=== PATIENT | female | born 1940 | race Caucasian/White ===

== ENCOUNTER 2016-12-06 08:55 | Outpatient (CLI) | payer MEDICARE, MEDICAID | END 2016-12-06 23:59 | disposition home or self-care (01) | LOC: D.MAMMO 08:55 | DX: Z12.31 Encounter for screening mammogram for malignant neoplasm of breast (principal) ==

== ENCOUNTER → 2017-01-02 11:16 | Outpatient (CLI) | payer MEDICARE, MEDICAID ==
[2017-01-03 16:38] LABS: APPEARANCE CLEAR (CLEAR); BILIRUBIN NEGATIVE (NEGATIVE); COLOR YELLOW (YELLOW); GLUCOSE NEGATIVE (NEGATIVE); KETONE NEGATIVE (NEGATIVE); LEUKOCYTE ESTERASE NEGATIVE (NEGATIVE); NITRITE NEGATIVE (NEGATIVE); PROTEIN NEGATIVE (NEGATIVE); SPECIFIC GRAVITY 1.015 (1.005-1.020); UROBILINOGEN NORMAL (NORMAL)
== END | disposition home or self-care (01) ==
LOC: D.CT 11:16
PROVIDERS: Internal Medicine Gastroenterology
DX: R10.30 Lower abdominal pain, unspecified (principal)

== ENCOUNTER → 2017-01-03 19:40 | Outpatient (CLI) | payer MEDICARE, MEDICAID ==
[2017-01-04 08:37] LABS: APPEARANCE CLEAR (CLEAR); BACTERIA FEW /hpf (NONE SEEN); BILIRUBIN NEGATIVE (NEGATIVE); COLOR YELLOW (YELLOW); EPITHELIAL CELLS RARE /hpf (0-5); GLUCOSE NEGATIVE (NEGATIVE); KETONE NEGATIVE (NEGATIVE); LEUKOCYTE ESTERASE 1+ (NEGATIVE); MUCUS <1+ /lpf (NONE SEEN); NITRITE NEGATIVE (NEGATIVE); PROTEIN NEGATIVE (NEGATIVE); UROBILINOGEN NORMAL (NORMAL); WHITE CELLS - URINE 0-5 /hpf (0-5)
== END | disposition home or self-care (01) ==
LOC: D.LABREF 19:40
PROVIDERS: Urology
DX: N39.0 Urinary tract infection, site not specified (principal)

== ENCOUNTER → 2017-01-10 19:26 | Outpatient (CLI) | payer MEDICARE, MEDICAID ==
[2017-01-10 20:46] LABS: APPEARANCE CLEAR (CLEAR); BILIRUBIN NEGATIVE (NEGATIVE); COLOR YELLOW (YELLOW); GLUCOSE NEGATIVE (NEGATIVE); KETONE NEGATIVE (NEGATIVE); LEUKOCYTE ESTERASE TRACE (NEGATIVE); NITRITE NEGATIVE (NEGATIVE); PROTEIN NEGATIVE (NEGATIVE); SPECIFIC GRAVITY 1.015 (1.005-1.020); UROBILINOGEN NORMAL (NORMAL)
[2017-01-10 20:47] LABS: WHITE CELLS - URINE 0-5 /hpf (0-5)
== END | disposition home or self-care (01) ==
LOC: D.LABREF 19:26
PROVIDERS: Urology
DX: N39.0 Urinary tract infection, site not specified (principal)

== ENCOUNTER → 2017-01-19 21:07 | Outpatient (CLI) | payer MEDICARE, MEDICAID ==
[2017-01-19 21:46] LABS: APPEARANCE CLEAR (CLEAR); BILIRUBIN NEGATIVE (NEGATIVE); COLOR YELLOW (YELLOW); GLUCOSE NEGATIVE (NEGATIVE); KETONE NEGATIVE (NEGATIVE); LEUKOCYTE ESTERASE NEGATIVE (NEGATIVE); NITRITE NEGATIVE (NEGATIVE); PROTEIN NEGATIVE (NEGATIVE); SPECIFIC GRAVITY 1.015 (1.005-1.020); UROBILINOGEN NORMAL (NORMAL)
== END | disposition home or self-care (01) ==
LOC: D.LABREF 21:07
PROVIDERS: Urology
DX: N39.0 Urinary tract infection, site not specified (principal)

== ENCOUNTER 2017-01-31 08:00 | Inpatient (IN) | payer MEDICARE, MEDICAID ==
[2017-01-30 11:33] LABS: APTT 27.9 SECONDS (22.8-39.4); INR 0.97 (0.85-1.17); PROTIME 12.8 SECONDS (11.6-15.0)
[2017-01-30 11:35] LABS: HEMATOCRIT 41.9 % (36.0-48.0); HEMOGLOBIN 13.8 g/dL (12-16); MCH 30.3 pg (26.0-34.0); MCHC 32.9 g/dL (31.0-37.0); MCV 92.1 fL (80.0-100.0); MEAN PLATELET VOLUME 9.5 fL (7.4-10.4); RBC 4.55 10x6/uL (4.00-5.40); RDW 12.8 % (11.5-14.5); WBC 6.7 10x3/uL (4.8-10.8)
[2017-01-30 11:46] LABS: ANION GAP 12.7 mmol/L (8-16); CALCIUM 8.8 mg/dL (8.5-10.1); CARBON DIOXIDE 27.4 mmol/L (21.0-32.0); CREATININE - SERUM 1.1 mg/dL (0.6-1.3); POTASSIUM - SERUM 4.1 mmol/L (3.5-5.1)
[~2017-01-31] VITALS: Ht 157.5 cm; Wt 64.0 kg
[2017-01-31] VITALS (16 sets, daily range): BP systolic 139–184; BP diastolic 60–87; BMI 25.8
[~2017-01-31 08:00] MED LIST: ALENDRONATE SOD70 MG PO; ARICEPT10 MG PO; CELEXA20 MG PO; GLIPIZIDE10 MG PO; LISINOPRIL10 MG PO
--- NOTE | 2017-01-31 15:00 | NUR ---
PT RECIEVED, EYES CLOSED, AROUSES WHEN SPOKEN TO, RESPIRATIONS EVEN, SHALLOW, O2 4L NC, PIV X2 TO RIGHT FOREARM, NS INFUSING 125ML/HR, A LINE TO LEFT WRIST, ZEROED AND FLUSHED, DRESSINGS X4 TO ABD CDI, DENIES PAIN, SCDS IN PLACE, CRITICORE BARRERA IN PLACE, VSS, FAMILY IN ROOM AND DENIES QUESTIONS/CONCERNS, WILL CONTNINUE TO MONITOR
--- NOTE | 2017-01-31 17:00 | NUR ---
PT ALERT, ABLE TO VOICE NEEDS, PAIN MANAGED WITH PRN MORPHINE PER REQUEST FOR ABD PAIN, ABD DRESSINGS CDI, CALL LIGHT WITHIN REACH, ABLE TO DRINK SMALL SIPS OF WATER, DENIES ALL NEEDS, VSS, WILL CONTINUE TO MONITOR
--- NOTE | 2017-01-31 19:11 | NUR ---
REC'D TO CARE, CREATIVE INTERN PER FLOWSHEET. PT AWAKENS TO NAME, ORIENTED. R ABD DSGS C/D/I, TENDER - WILL ADMIN PRN MEDS PER MD ORDERS NEEDED. CRITICORE BRUCE PATENT. L RADIAL A-LINE, FLUSHED AND ZEROED WITH GOOD WAVE FORM NOTED. ALARMS ON AND C/L IN USE.
--- NOTE | 2017-01-31 19:41 | NUR ---
PRN NORCO GIVEN, REPOSITIONED FOR COMFORT, USING PILLOW TO SPLINT ABD.
--- NOTE | 2017-01-31 20:07 | NUR ---
DR. NARANJO NOTIFIED OF SBP 180S, STATUS REPORT GIVEN, NO NEW ORDERS.
--- NOTE | 2017-01-31 21:15 | NUR ---
NO VISITORS. PT RESTING QUIETLY, NO SIGN OF DISTRESS.
--- NOTE | 2017-01-31 21:56 | NUR ---
PT C/O "HURTING AGAIN", REPOSITIONED WITH PILLOWS AND PRN MORPHINE GIVEN, ALARMS ON . C/L IN REACH.
--- NOTE | 2017-01-31 22:54 | NUR ---
REASSESSMENT PER FLOWSHEET, NO ACUTE CHANGES, PT REPORTS ADEQUATE PAIN RELIEF, NO SIGN OF DISTRESS. C/L IN REACH.
[2017-02-01] VITALS (21 sets, daily range): BP systolic 110–167; BP diastolic 49–90; Ht 157.5 cm; Wt 64.0 kg
--- NOTE | 2017-02-01 01:14 | NUR ---
PT TRANSFERRED TO RM 2301 VIA BED, VSS. REPOSITIONED FOR COMFORT, TAKING SIPS OF WATER WITHOUT NAUSEA.
--- NOTE | 2017-02-01 03:30 | NUR ---
REASSESSMENT PER FLOWSHEET, PT AWAKENS EASILY, VSS. DENIES NEED FOR PAIN MED, TAKING SIPS OF WATER. NO SIGN OF DISTRESS. ABD DSGS C/D/I. ALARMS ON AND C/L IN REACH.
--- NOTE | 2017-02-01 06:05 | NUR ---
FAMILY AT BS, UPDATE GIVEN. LEMON SWABS PROVIDED FOR ORAL CARE.
--- NOTE | 2017-02-01 07:00 | NUR ---
PT LYING IN BED WITH 0 S/SX OF DISTRESS/DISCOMFORT NOTED. CONFUSION NOTED. WAS TOLD THAT PT HAS ALZHEIMER'S. PT ALERT AND ORIETED TO PERSON ONLY. DENIES PAIN AT THIS TIME. HAS FC WITH CLEAR YELLOW URINE NOTED.37ML OUT AT 0700. 4 DRESSING TO ABD C/D/I. 2 PIV IN RIGHT FOREARM. 18 GAUGE PATENT WITH NS AT 125ML/H AND A 20 GAUGE SL. BOTH IV'S PATENT WITH C/D/I DRESSING. LEFT RADIAL ART LINE. GOOD WAVE'S 153/63 AFTER BEING ZEROED OUT. CALL LIGHT IN REACH. BED IN LOWEST POSITION. WILL CONT POC.
[2017-02-01 07:06] LABS: BASOPHILS 0.1 % (0-2); EOSINOPHILS 0.1 % (0-7); HEMATOCRIT 37.3 % (36.0-48.0); HEMOGLOBIN 12.2 g/dL (12-16); IMMATURE GRANULOCYTES 0.2 % (0-5); LYMPHOCYTES 7.6 % (15-50); MCH 30.2 pg (26.0-34.0); MCHC 32.7 g/dL (31.0-37.0); MCV 92.3 fL (80.0-100.0); MEAN PLATELET VOLUME 9.3 fL (7.4-10.4); MONOCYTES 9.3 % (2-11); NEUTROPHILS 82.7 % (40-80); PLATELET COUNT 150 10x3/uL (130-400); RBC 4.04 10x6/uL (4.00-5.40); RDW 12.9 % (11.5-14.5)
[2017-02-01 07:08] LABS: WBC 12.6 10x3/uL (4.8-10.8)
[2017-02-01 07:37] LABS: ANION GAP 13.2 mmol/L (8-16); CALCIUM 7.1 mg/dL (8.5-10.1); CARBON DIOXIDE 22.1 mmol/L (21.0-32.0); CREATININE - SERUM 1.2 mg/dL (0.6-1.3); POTASSIUM - SERUM 4.3 mmol/L (3.5-5.1)
--- NOTE | 2017-02-01 08:00 | NUR ---
OUT PUT 20ML CLEAR YELLOW URINE
--- NOTE | 2017-02-01 09:00 | NUR ---
110ML OUTPUT CLEAR YELLOW URINE
--- NOTE | 2017-02-01 09:26 | NUR ---
FAMILY AT BED WITH WITH CASE MANAGMENT.
--- NOTE | 2017-02-01 10:00 | NUR ---
73ML OUTPUT OF CLEAR YELLOW URINE
--- NOTE | 2017-02-01 11:00 | NUR ---
73 ML OUTPUT OF CLEAR YELLOW URINE
--- NOTE | 2017-02-01 12:00 | NUR ---
87 ML OF CLEAR YELLOW URINE.
--- NOTE | 2017-02-01 12:00 | NUR ---
FAMILY AND FRIENDS AT BED SIDE. ABD DRESSINGS C/D/I. NO NEEDS AT THIS TIME. BREATHING NORMAL AND UNLABORED. CALL LIGHT IN REACH.
--- NOTE | 2017-02-01 12:51 | NUR ---
C/O DULL ABD PAIN 12/24. ABD DRESSING C/D/I. PRN NORCO GIVEN.
--- NOTE | 2017-02-01 13:00 | NUR ---
183 ML OF CLEAR YELLOW URINE.
--- NOTE | 2017-02-01 13:08 | NUR ---
AT BED SIDE. OK TO TRANSFER OUT OF ICU. DRESSING C/D/I. URINE OUTPUT REMAINS STABLE. AWAITING HOSPITAL BED. CALL LIGHT IN REACH. WILL CONT POC.
--- NOTE | 2017-02-01 13:21 | NUR ---
REASSESSED ABD PAIN. 08/26. STATES SHE FEELS "BETTER". NO S/SX OF ASE NOTED. WILL CONT POC.
--- NOTE | 2017-02-01 14:00 | NUR ---
217 ML OF CLEAR YELLOW URINE
--- NOTE | 2017-02-01 14:50 | NUR ---
PT GETTING CONFUSED. WONDERING WHY SHE IS IN ICU. REORIENTED PT AND EXPLAINED WHY SHE WAS IN [facility] AND WHAT HER CONDITION WAS. REORIENTED SUCCESSFUL. WATER AND JELLO GIVEN TO PT. TOLERATING WELL. CALL LIGHT IN REACH. WILL CONT POC.
--- NOTE | 2017-02-01 15:45 | NUR ---
REMAINS IN BED. NO NEEDS VOICED AT THIS TIME. ABD DRESSING X4 C/D/I. STILL WAITING ON OPEN BED FOR TRANSFER. CALL LIGHT IN REACH. WILL CONT POC
--- NOTE | 2017-02-01 16:23 | NUR ---
237 ML OF CLEAR YELLOW URINE NOTED.
--- NOTE | 2017-02-01 16:47 | NUR ---
HAD SCANT AMOUNT OF BLOOD NOTED TO A LINE. DRESSING WAS STARTING TO COME UNDONE. WRIST BRACE REMAINED IN PLACE. PAGED. OK TO RUBENS DOMINGUEZ. A LINE REMOVED WITH TIP OF CATHETER INTACT. PRESSURE APPLIED TO WRIST. NO BLEEDING NOTED. PRESSURE DRESSING APPLIED.
--- NOTE | 2017-02-01 17:00 | NUR ---
RENAL LIQUID DIET GIVEN. TOLERATING WELL WITH NO DYSPHAGIA.
--- NOTE | 2017-02-01 17:48 | NUR ---
DR MATAMOROS AT BED SIDE
--- NOTE | 2017-02-01 18:08 | NUR ---
DR MATAMOROS OK TO TRANSFER TO [facility]. WAITING ON BED.
--- NOTE | 2017-02-01 18:45 | NUR ---
PT HAS BEEN TAKIN OFF BP CUFF FOR MAJORITY OF THE SHIFT. NOTICED THAT SHE WAS MESSING WITH HER IV. IV HALF WAY OUT OF ARM AND ARM SWOLLEN. NS 125 WAS RUNNING BUT IT WAS TURNED OFF AND BOTH IV'S WHERE DC'D OUT OF HER RIGHT FA. X2 ATTEMPTS TO LEFT FOREARM AND LEFT AC. UNSUCCESSFUL. ONCOMING NURSE AWARE.
--- NOTE | 2017-02-01 18:54 | NUR ---
PT LYING IN BED WITH NO NEEDS AT THIS TIME. 0 S/SX OF DISTRESS/DISCOMFORT NOTED. BREATHING NORMAL AND UNLABORED. BED IN LOWEST POSITION. CALL LIGHT IN REACH. WILL CONT POC.
--- NOTE | 2017-02-01 19:00 | NUR ---
REC'D TO CARE, INDUCTION BRAZER PER FLOWSHEET. PT WITH NO IV ACCESS - NEW 20GA SITED TO R UPPER ARM X 1 STICK, RESUMED NS PER MD ORDER. PT IS PLEASANTLY CONFUSED, WILL REORIENT FREQUENTLY. VSS. NO SIGN OF DISTRESS. ABD SOFT, DSGS C/D/I. CRITICORE BARRERA PATENT AND DRANINING CLEAR, YELLOW URINE. PT WITH TRANSFER ORDERS AWAITING ROOM ON FLOOR. ALARMS ON AND C/L IN REACH.
--- NOTE | 2017-02-01 21:06 | NUR ---
DR. NARANJO NOTIFIED THAT PT BECAME AGITATED AND COMBATIVE AND HITTING STAFF.. THINKS SHE IS AT HOME AND STAFF IS STEALING FROM HER. NEW ORDER REC'D. ADMIN HALDOL PER PRN ORDER - WILL CONT CLOSE MONITORING.
--- NOTE | 2017-02-01 21:10 | NUR ---
ATTEMPT TO NOTIFY DAUGHTER - VOICE MAIL LEFT.
--- NOTE | 2017-02-01 21:29 | NUR ---
PT CALM AT THIS TIME, STILL CONFUSED AND VERBALLY ANGRY, WILL CONT TO REORIENT AND PROVIDE CLOSE OBSERVATION.
--- NOTE | 2017-02-01 22:15 | NUR ---
PT CALM, PLEASANTLY CONFUSED AND PARANOID. VSS. NO SIGN OF DISTRESS. REORIENTED BY NURSE. ALARMS ON.
--- NOTE | 2017-02-02 00:07 | NUR ---
RESTING WITH EYES CLOSED, NO SIGN OF DISTRESS. C/L IN REACH. ALARMS ON.
--- NOTE | 2017-02-02 01:47 | NUR ---
PT PULLING OFF NIBP CUFF AND ELECTRODES. ADMIN PRN HALDOL PER MD ORDER. REPOSITIONED UP IN BED, GIVEN DRINK OF WATER. VSS.
--- NOTE | 2017-02-02 02:15 | NUR ---
RESTING WITH EYES CLOSED, VSS. NO SIGN OF DISTRESS.
--- NOTE | 2017-02-02 03:30 | NUR ---
REASSESSMENT PER FLOWSHEET, NO ACUTE CHANGES. TEMP COMING UP, WEANING DOPAMINE GTT OFF.
--- NOTE | 2017-02-02 06:07 | NUR ---
PT RESTING QUIETLY, REFUSES TO KEEP EKG LEADS ON, LEFT ON SINCE SHE HAS TRANSFER ORDERS. DAUGHTER UPDATED OVER PHONE.
--- NOTE | 2017-02-02 07:00 | NUR ---
PT LYING IN BED AWAKE. PT ALERT TO PERSON ONLY. ORIENTED TO PLACE TIME AND SITUATION. PT HAD GOWN REMOVED FROM BODY, TELEMETRY REMOVED AND STACKLOCK REMOVED ON FC. TELEMETRY, STATLOCK AND GOWN PUT BACK ON PT THE CORRECT WAY. FC HAS YELLOW CLEAR URINE NOTED. PIV TO LEFT UPPER ARM PATENT WITH NS AT 125ML/H INFUSING. PT COMPLAIN OF ABD PAIN. DRESSING X4 C/D/I WITH NO DRAINAGE NOTED. 2MG MORPHINE GIVEN VIA IV. EFFECTIVE WITH NO S/SX OF ASE NOTED. LIQUID DIET PROVIDED. PT SITTING AT 90 DEGREES WITH NO S/SX OF DYSPAGIA NOTED. CALL LIGHT IN REACH. BED IN LOWEST POSITION WILL CONT POC.
[2017-02-02 08:00] VITALS: BP 166/73
--- NOTE | 2017-02-02 09:00 | NUR ---
DAUGHTER AT BED SIDE. QUESTION ANSWERED.
--- NOTE | 2017-02-02 10:12 | NUR ---
Nutrition follow-up: Diet advanced to full liquids; pt tolerating per nursing. Labs reviewed Wt: 141# Pt to transfer to [facility] when bed available. RDN following.
--- NOTE | 2017-02-02 10:16 | NUR ---
REPORT CALLED TO NURSE IN MED SURGE.
--- NOTE | 2017-02-02 10:40 | NUR ---
PT VS STABLE. DENIES PAIN. BREATHING NORMAL AND UNLABORED. 0 S/SX OF DISTRESS/DISCOMFORT NOTED. TRANSFERED OUT OF ICU TO [facility] RM 2210.
--- NOTE | 2017-02-02 10:40 | NUR ---
RECEIVED FROM ICU VIA BED. BED IN LOWEST POSITION WITH SRX3 AND BED ALARM ON. BARRERA CATHETER PATENT AND DRAINING TO GRAVITY.
[2017-02-02 12:49] VITALS: BP 149/60
--- NOTE | 2017-02-02 13:52 | NUR ---
SLEEPING AT THIS TIME WITH RESPIRATIONS EVEN AND NON LABORED. CALL LIGHT IN REACH, WILL CONTINUE WITH PLAN OF CARE.
[2017-02-02 16:10] VITALS: BP 149/64
--- NOTE | 2017-02-02 16:15 | NUR ---
BARRERA CATHETER D/C WITH CATH TIP INTACT. PT TOLERATED WITHOUT COMPLAINTS. BED ALARM ON AND CALL LIGHT IN REACH. WILL CONTINUE WITH PLAN OF CARE.
[2017-02-02 20:00] VITALS: BP 194/69
[2017-02-02 20:05] VITALS: BP 166/73
--- NOTE | 2017-02-02 22:08 | NUR ---
ALERT,ORIENTED X 3. NO COMPLAINTS VOICED. ASSISTED TO BR. VOIDING WITHOUT DIFFICULTY. BACK TO BED. IV INFUSING TO UPPER RIGHT ARM WITHOUT REDNESS OR EDEMA NOTED. CL IN REACH
--- NOTE | 2017-02-03 01:45 | NUR ---
HEARD LOUD NOISE IN ROOM. PATIENT HAD GOTTEN SELF OUT OF BED TO GO TO BR. INCONTINENT OF BM.ALSO PULLED IV OUT.FECES(DIARREHEA) NOTED ON FLOOR. PATIENT STATES SHE SLIPPED AND FELL. PUT SELF BACK TO BED. DENIES PAIN. NO INJURIES NOTED..MOLD OPERATOR NOTIFIED.
--- NOTE | 2017-02-03 03:56 | NUR ---
BED ALARM GOING OFF, FOUND STANDING BESIDE THE FOOT OF BED. ASSISTED TO BATHROOM AND BACK. CALL LIGHT GIVEN TO HER AND REORIENTED TO LIGHT. RESPIRATIONS EASY AND NO DISTRESS NOTED.
[2017-02-03 04:00] VITALS: BP 182/66
--- NOTE | 2017-02-03 06:20 | NUR ---
DAUGHTER CONNOR NOTIFIED OF RESIDENTS FALL.STATES " SHE DOES HAVE DEMENTIA AND GETS CONFUSED. APPRECIATIVE OF CALL.
--- NOTE | 2017-02-03 07:00 | NUR ---
REPORT RECIEVED ASSUMED CARE. PATIENT IN BED WITH IV INTACT. NO COMPLAINTS. CALL LIGHT WITHIN REACH.
[2017-02-03 08:55] VITALS: BP 181/80
[2017-02-03 13:07] VITALS: BP 115/73
[2017-02-03] MEDS ORDERED: HYDROCODON-ACE1 EAC7 PO (14:50)
--- NOTE | 2017-02-03 15:28 | NUR ---
CM REASSESSMENT NOTE: PATIENT IS DISCHARGING TODAY. LEFT MSG. X2 ON DAUGHTERS (CONNOR) PHONE TO CALL CM. PATIENT SIGNED THE RONDA FORM WITH [facility] AND REFERRAL SENT. PATIENT STATED SHE HAD NO OTHER NEEDS FOR DISCHARGE. CM WILL CONTINUE TO FOLLOW PATIENT WITH D/C NEEDS AND PLANS.
--- NOTE | 2017-02-03 16:25 | NUR ---
CM REASSESSMENT NOTE: CM SPOKE WITH CONNOR (DAUGHTER) AND SHE WILL DRIVE PATIENT HOME TODAY. DAUGHTER WAS [facility] ([facility]) WAS SET UP AND A WALKER WILL BE DELIVERED TO PATIENTS ROOM FROM [facility].
--- NOTE | 2017-02-03 18:45 | NUR ---
PATIENT AND FAMILY RECIEVED DC INSTRUCTIONS. NO QUESTIONS AT THIS TIME. PRESCRIPTION GIVEN TO PATIENT DAUGHTER. IV REMOVED WITH CATH TIP INTACT. CALL LIGHT WITHIN REACH.
--- NOTE | 2017-02-03 19:00 | NUR ---
PATIENT ESCORTED OUT OF HOSPITAL VIA WC WITH PERSONAL BELONGINGS TO PRIVATE VEHICLE.
== END 2017-02-03 19:53 | disposition home health service (06) | DRG 330 ==
LOC: D.OPS 08:00 → D.PAN 10:00 → D.OPS 10:00 → D.ICU 14:48 → D.OPS 15:35 → D.ICU 02-01 01:10 → D.MS 02-02 10:39
PROVIDERS: Anesthesiology; Surgery; ADMIT Urology
PROC: 0TT00ZZ Resection of Right Kidney, Open Approach (ICD-10-PCS; principal; 2017-01-31 09:00)
PROC: 0TT60ZZ Resection of Right Ureter, Open Approach (ICD-10-PCS; 2017-01-31 09:00)
PROC: 0DTF0ZZ Resection of Right Large Intestine, Open Approach (ICD-10-PCS; 2017-01-31 09:00)
DX: D12.0 Benign neoplasm of cecum (principal); N13.2 Hydronephrosis with renal and ureteral calculous obstruction; D12.2 Benign neoplasm of ascending colon; D12.3 Benign neoplasm of transverse colon; I12.9 Hypertensive chronic kidney disease with stage 1 through stage 4 chronic kidney disease, or unspecified chronic kidney disease; N18.9 Chronic kidney disease, unspecified; R41.0 Disorientation, unspecified

== ENCOUNTER → 2017-02-10 17:03 | Outpatient (CLI) | payer MEDICARE, MEDICAID ==
[2017-02-01 12:55] VITALS: BMI 25.8
[~2017-02-10 17:03] MED LIST changes: +HYDROCODON-ACE1 EAC7 PO
[2017-02-10 17:57] LABS: APPEARANCE CLEAR (CLEAR); BILIRUBIN NEGATIVE (NEGATIVE); COLOR YELLOW (YELLOW); GLUCOSE NEGATIVE (NEGATIVE); KETONE NEGATIVE (NEGATIVE); LEUKOCYTE ESTERASE TRACE (NEGATIVE); NITRITE NEGATIVE (NEGATIVE); PROTEIN NEGATIVE (NEGATIVE); SPECIFIC GRAVITY 1.015 (1.005-1.020); UROBILINOGEN NORMAL (NORMAL)
[2017-02-10 17:58] LABS: EPITHELIAL CELLS 0-5 /hpf (0-5); WHITE CELLS - URINE 0-5 /hpf (0-5)
[2017-02-10 17:59] LABS: BACTERIA FEW /hpf (NONE SEEN)
== END | disposition home or self-care (01) ==
LOC: D.LABREF 17:03
PROVIDERS: Urology
DX: N39.0 Urinary tract infection, site not specified (principal)

== ENCOUNTER → 2017-02-16 11:38 | Outpatient (CLI) | payer MEDICARE, MEDICAID ==
[2017-02-01 12:55] VITALS: BMI 25.8
[2017-02-16 12:02] LABS: ANION GAP 12.1 mmol/L (8-16); CALCIUM 8.7 mg/dL (8.5-10.1); CARBON DIOXIDE 29.4 mmol/L (21.0-32.0); CREATININE - SERUM 1.3 mg/dL (0.6-1.3); POTASSIUM - SERUM 4.5 mmol/L (3.5-5.1)
== END | disposition home or self-care (01) ==
LOC: D.LAB 11:38
PROVIDERS: Urology
DX: E21.3 Hyperparathyroidism, unspecified (principal)

== ENCOUNTER → 2017-04-10 18:07 | Outpatient (CLI) | payer MEDICARE, MEDICAID ==
[2017-02-01 12:55] VITALS: BMI 25.8
== END | disposition home or self-care (01) ==
LOC: D.LABREF 18:07
DX: N39.0 Urinary tract infection, site not specified (principal)

== ENCOUNTER → 2017-04-17 07:59 | Outpatient (CLI) | payer MEDICARE, MEDICAID ==
[2017-02-01 12:55] VITALS: BMI 25.8
== END | disposition home or self-care (01) ==
LOC: D.CT 07:59
DX: Z87.442 Personal history of urinary calculi (principal)

== ENCOUNTER 2020-03-20 12:55 | Inpatient (IN) | payer MEDICARE, MEDICAID ==
[2020-03-20 14:06] LABS: ANION GAP 10.4 mmol/L (8-16); CALCIUM 9.5 mg/dL (8.5-10.1); CARBON DIOXIDE 27.9 mmol/L (21.0-32.0); CREATININE - SERUM 1.5 mg/dL (0.6-1.3); POTASSIUM - SERUM 3.3 mmol/L (3.5-5.1)
[2020-03-20 14:14] LABS: BASOPHILS 0.7 % (0-2); EOSINOPHILS 9.8 % (0-7); HEMATOCRIT 35.4 % (36.0-48.0); HEMOGLOBIN 11.3 g/dL (12-16); IMMATURE GRANULOCYTES 2.9 % (0-5); LYMPHOCYTES 19.4 % (15-50); MCH 29.5 pg (26.0-34.0); MCHC 31.9 g/dL (31.0-37.0); MCV 92.4 fL (80.0-100.0); MEAN PLATELET VOLUME 9.2 fL (7.4-10.4); MONOCYTES 7.6 % (2-11); NEUTROPHILS 59.6 % (40-80); PLATELET COUNT 217 10x3/uL (130-400); RBC 3.83 10x6/uL (4.00-5.40); WBC 6.9 10x3/uL (4.8-10.8)
[2020-03-20 14:21] LABS: ACETAMINOPHEN 0.8 ug/mL (10.0-30.0); ALBUMIN 3.5 g/dL (3.4-5.0); BILIRUBIN - TOTAL 0.21 mg/dL (0.2-1.3); MAGNESIUM - SERUM 1.5 mg/dL (1.8-2.4); PROTEIN - SERUM 6.2 g/dL (6.4-8.2); THYROID STIMULATING HORMONE 1.13 uIU/mL (0.36-3.74)
[2020-03-20 14:48] LABS: BILIRUBIN NEGATIVE (NEGATIVE); KETONE NEGATIVE (NEGATIVE); NITRITE NEGATIVE (NEGATIVE); UROBILINOGEN NORMAL (NORMAL)
[2020-03-20 14:51] LABS: UDS - AMPHET NEGATIVE QUAL (NEGATIVE); UDS - BARB NEGATIVE QUAL (NEGATIVE); UDS - BENZO NEGATIVE QUAL (NEGATIVE); UDS - COCAINE NEGATIVE QUAL (NEGATIVE); UDS - OPIATE NEGATIVE QUAL (NEGATIVE); UDS - PCP NEGATIVE QUAL (NEGATIVE); UDS - THC NEGATIVE QUAL (NEGATIVE)
--- NOTE | 2020-03-20 15:23 | NUR ---
NASAL SWAB COLLECTED, LABELED AT BS AND SENT TO LAB
--- NOTE | 2020-03-20 16:30 | NUR ---
CALLED [facility] SPOKE WITH BISHOP LOCKE AND SHE REPORTS DR MICHEL HAS ACCEPTED PT
--- NOTE | 2020-03-20 16:56 | NUR ---
The patient is admitted to half-way from the ED, she lives at home with care givers, but her daughter Emily ALFARO says the patient has become increasingly more confused, and aggressive, she has been combative, saying she will kill others, throwing stuff at the grandchildren. She also has had some hallucinations. At this time she believes she is in [facility]. Staff and her daughter have explained to her that she is not in [facility]. She is calling her daughter a "Bi--h" She continues to say she is in [facility]. Her daughter Emily ALFARO says she is a full code, she is the POA, but she does not know where the paperwork is at this time. The patient is ambulatory, she has dentures. Snow Vallejo RN is going over the admit paperwork with Emily Hood.
[2020-03-20 17:02] VITALS: BP 178/80; BMI 22.2
--- NOTE | 2020-03-20 19:45 | NUR ---
B) RECEIVED IN HER ROOM 1123 LYING IN BED WITH EYES OPEN. PATIENT IS VERY CONFUSED, ORIENTED TO PERSON ONLY. SHE IS ON ISOlation FOR PUI UNTIL COVID TEST RESULTS RETURN. I) NO MEDICATIONS GIVEN R) REDIRECT AND REORIENT NEEDED. MONITOR FOR SAFETY. P) CONTINUE POC.
[2020-03-20 20:00] VITALS: BP 142/72
[2020-03-21 08:16] LABS: CHOL - HDL RATIO 1.9 ratio (2.3-4.1); LDL-HDL RATIO 0.7 ratio (1.5-3.5); THYROID STIMULATING HORMONE 1.4 uIU/mL (0.36-3.74)
[2020-03-21 09:05] VITALS: Wt 54.7 kg
[2020-03-21 09:18] VITALS: BP 118/63
--- NOTE | 2020-03-21 11:08 | NUR ---
PT IN ROOM AWAITING ON SARS-19 RESULTS. PT IS CONFUSED AND ALERT TO SELF ONLY. PT PACES IN HER ROOM CONFUSED ABOUT WHAT TO DO. REDIRECT AND REORIENT IF NEEDED. PT HAS NEW ORDERS FOR MEDICATIONS. PT HAS NOT HAD AN AGGRESSIVE BEHAVIORS NOTED. PT CAN MAKE SOME NEEDS KNOWN. WILL CONT PLAN OF CARE.
--- NOTE | 2020-03-21 16:22 | NUR ---
PT DAUGHTER BROUGHT CLOTHES. WILL INVENTORY AND WASH.
--- NOTE | 2020-03-21 20:00 | NUR ---
RECEIVED IN ROOM 1123 WALKING IN ROOM. SHE DENIES ANY SI THOUGHTS. ADMINISTERED SCHEDULED MEDICATIONS. COMPLIANT. PLEASANT, CALM AND COOPERATIVE WITH CARE AND ASSESSMENT. REDIRECT AND REORIENT NEEDED. WILL CPOC.
[2020-03-21 21:28] VITALS: BP 122/65
[2020-03-22 08:53] VITALS: BP 142/76
--- NOTE | 2020-03-22 12:00 | NUR ---
RECEIVED IN PATIENT ROOM. CALM AND COOPERATIVE WITH CARE AND ASSESSMENT. CONFUSED. TALKING TO UNSEEN OTHERS. ANXIOUS. PACING ROOM. WANDERING OUT INTO [facility] [place]. REPEATEDLY ASKING WHEN SHE CAN LEAVE. REDIRECT AND REORIENT NEEDED. EATING AT THIS TIME. CONTINUE PLAN OF CARE.
--- NOTE | 2020-03-22 17:46 | NUR ---
PT BECAME VERY AGGRESSIVE WITH STAFF UPON REDIRECTION. PT ATTEMPTED TO KICK AND SLAP AT STAFF. PT IS CUSSING STAFF AND PEERS AT THIS TIME. UNABLE TO REDIRECT AT THSI TIME. ATIVAN 0.5MG IM AND HALDOL 2MG IM GIVEN PER ORDER. WILL CPOC.
[2020-03-22 20:03] VITALS: BP 138/63
--- NOTE | 2020-03-22 21:04 | NUR ---
RECEIVED IN DAYROOM. SITTING IN A CHAIR WITH PEERS AT HER SIDE. CALM AND COOPERATIVE WITH CARE AND ASSESSMENT. NO SIGNS OF AGGRESSION OR HALLUCINATIONS AT THIS TIME. REDIRECT AND REORIENT NEEDED. CONTINUES TO SIT CALMLY IN DAYROOM. CONTINUE PLAN OF CARE.
--- NOTE | 2020-03-23 08:08 | NUR ---
REC'D PT SITTING IN HALLWAY BY NURSES STATION. CALM AND COOPERATIVE AT THIS TIME. PT IS VERY CONFUSED AND CAN BECOME COMBATIVE WITH STAFF AT TIMES. REDIRECT AND REORIENT NEEDED. HARD TO REDIRECT AT TIMES. PRESCRIBED MEDS PROVIDED ORDERED. MED COMPLIANT. FALL PRECAUTIONS IN PLACE. WILL CPOC.
[2020-03-23 08:49] VITALS: BP 159/57
--- NOTE | 2020-03-23 09:13 | PSY ---
PATIENT NAME:SLADE SOLORIO MEDICAL RECORD: [id number] : 40 LOCATION:[facility] ADMISSION DATE: 03/20/20 ACCOUNT: [id number] PSYCHIATRIC EVALUATION DATE OF EVALUATION: 03/20/20 IDENTIFYING DATA: Ms. Zambrano is a 79-year-old female patient that was admitted to the hospital on a voluntary basis from the Emergency Room. Her chief complaint is confusion and aggression due to extreme aggressive behavior toward her daughter. HISTORY OF PRESENT ILLNESS: The patient was brought by ambulance to the hospital from her home, which she resides with her daughter. Daughter stated that the patient became very aggressive and started saying that she was going to kill people. The patient is sitting in the chair. She is calm but disorganized and difficult to redirect. The patient states that she believes that she is in correction, does not understand why. PAST MEDICAL HISTORY: Diabetes, hypertension. PAST PSYCHIATRIC HISTORY: Dementia and depression. FAMILY HISTORY: The patient is a poor historian. Trauma, the patient is a poor historian. ALLERGIES: No known allergies. CURRENT MEDICATIONS: Include hydrocodone and acetaminophen one tab q.4 hours p.r.n. for pain, lisinopril 10 mg p.o. daily, Glucotrol 10 mg p.o. every morning, Aricept 10 mg every morning, and Celexa 20 mg p.o. daily. SOCIAL HISTORY: The patient has been , used to live in [place] and moved to reside with her daughter, unknown timeframe. Denies any history of drug or alcohol abuse. She graduated from high school. She worked but is unable to articulate where she worked or what she did as an occupation. The patient believes that she is in correction. MENTAL STATUS EXAM: The patient is mildly disheveled. The patient is alert and oriented to person, disoriented to place, time and situation. Her speech is soft, low tone, low volume. Associations are loose. Her thoughts are disorganized. Her associations are loose. Her eye contact is good. Her Judgment and insight impaired. She is highly impulsive. Patient thought contained homicidal ideation. Her mood is depressed and anxious, easily agitated and paranoid. Her affect is flat, blunt, narrow in range. No abnormal movements noted. Anxiety is moderate to severe. Memory is poor for both recent and remote events. The patient does not appear to be attending to either visual or auditory hallucinations. Her judgment is poor. Her strengths are her family. Her weakness is her confusion and agitation. ASSESSMENT: AXIS I: Major neurocognitive disorder of the Alzheimer's type with behavioral disturbances. AXIS II: None. AXIS III: Include diabetes and kidney stones, the patient reports that her right kidney is . AXIS IV: Moderate. AXIS V: Global assessment of functioning is 30. PLAN: At this time, the patient is being admitted to the hospital secondary to aggressive behavior and homicidal ideation and increased confusion. The patient will be comprehensively evaluated for mood thought and cognition. The patient will be treated with both mood stabilizing and memory enhancing medication. Her long-term prognosis is guarded. Dictated By: Glendy Cuevas APN I have interviewed/examined the above patient and agree with these documented findings. TRANSINT:[id number] Voice Confirmation ID: [id number] DOCUMENT ID: [id number] Dictated By: GLENDY CUEVAS I have interviewed/examined the above patient and agree with these documented findings. AUGUSTINE MICHEL MD at 0913 at 1046 CC: [id number] DICTATION DATE: 03/20/20 1831 RACKING TECHNICIAN: 03/20/20 2204 ADM IN [facility] [address] [id number]
--- NOTE | 2020-03-23 19:34 | NUR ---
RECEIVED IN DAYROOM. SITTING IN A CHAIR WITH PEERS AT HER SIDE. CALM AND COOPERATIVE WITH CARE AND ASSESSMENT. NO SIGNS OF AGGRESSION OR HALLUCINATIONS. REDIRECT AND REORIENT NEEDED. CONTINUES TO SIT CALMLY IN DAYROOM. CONTINUE PLAN OF CARE.
[2020-03-23 20:28] VITALS: BP 133/70
[2020-03-24 09:17] VITALS: BP 163/74
--- NOTE | 2020-03-24 12:00 | NUR ---
RECEIVED IN HALLWAY OUTSIDE OF NURSES STATION. SITTING QUIETLY IN CHAIR. CALM AND COOPERATIVE WITH CARE AND ASSESSMENT. TALKING TO UNSEEN OTHERS. REDIRECT AND REORIENT NEEDED. EATING AT THIS TIME. CONTINUE PLAN OF CARE.
[2020-03-24 19:53] VITALS: BP 132/57
--- NOTE | 2020-03-24 22:01 | NUR ---
RECEIVED IN DAYROOM. SITTING IN A CHAIR WITH PEERS AT HER SIDE. CALM AND COOPERATIVE WITH CARE AND ASSESSMENT. NO SIGNS OF HALLUCINATIONS OR AGGRESSION. REDIRECT AND REORIENT NEEDED. RESTING IN BED WITH EYES CLOSED AT THIS TIME. CONTINUES PLAN OF CARE.
[2020-03-25 06:11] LABS: RAPID PLASMA REAGIN Non Reactive (Non Reactive)
--- NOTE | 2020-03-25 08:22 | PN ---
PATIENT:SLADE SOLORIO MEDICAL RECORD: [id number] LOCATION:[facility] ADMISSION DATE: 03/20/20 PROGRESS NOTE DATE OF SERVICE: 03/24/2020 SUBJECTIVE: The patient's case was discussed with staff. She has no new complaint. OBJECTIVE: The patient is in good behavioral control. She has poor insight about her situation. She tolerates her medications well. She is eating and sleeping well, but has had some significant and serious agitation that has been effectively addressed by staff. ASSESSMENT: Dementia. PLAN: The patient will be treated with a low dose of Seroquel to assist with the agitated behavior. She will be monitored for clinical changes associated with its use. Her long-term prognosis is guarded. TRANSINT:[id number] Voice Confirmation ID: [id number] DOCUMENT ID: [id number] AUGUSTINE MICHEL MD at 0822 CC: [id number] DICTATION DATE: 03/24/20 1650 BRICKLAYER'S ASSISTANT: 03/25/20 0107 ADM IN [place] [id number] [id number]
--- NOTE | 2020-03-25 09:05 | NUR ---
Nutrition Follow-up: Diet: Diabetic PO intake: ~84% average x last 9 meals Last BM: 03/21/20. Wt: 122# (03/22/20); Admit Wt: 121# (03/20/20) Meds noted: glipizide, SSI. Labs noted: POC Glu 98(WNL) Recommend continue current diet. RD following.
[2020-03-25 09:15] VITALS: BP 125/85
--- NOTE | 2020-03-25 10:57 | NUR ---
RECEIVED IN HALLWAY AT NURSES STATION THIS AM.CONFUSED AND DISORIENTED.FLAT AFFECT.COPLIANT WITH STAFFF AND MEDS.AMBULATES.NO BEHAVIORS OBSERVED THIS AM.SITTING QUIETLY IN DAYROOM AT PRESENT TIME.WILL CONTINUE WITH CURRENT PLAN OF CARE,MONITOR FOR CHANGES AND SAFETY.
[2020-03-25 20:11] VITALS: BP 136/54
--- NOTE | 2020-03-25 22:37 | NUR ---
B) Patient is alert and oriented to person, calm and cooperative, very confused, follows instructions I) Administered scheduled medications as ordered, monitored for needs and for safety R) Mediation compliant, sits by herself, flat affect P) Continue plan of care.
--- NOTE | 2020-03-26 08:48 | PN ---
PATIENT:SLADE SOLORIO MEDICAL RECORD: [id number] LOCATION:[facility] ADMISSION DATE: 03/20/20 PROGRESS NOTE DATE OF SERVICE: 03/25/2020 SUBJECTIVE: The patient's case was discussed with staff. She has no new complaint. OBJECTIVE: The patient is in good behavioral control. She is tolerating her medicines well. Unfortunately, she is only partially oriented. She has not been aggressive today. I am not sure if that is related to an improvement in her condition or just simply the fact that she has a great deal of supervision here. ASSESSMENT: Dementia. PLAN: Current medicines have been reviewed and will be maintained. Long-term prognosis is guarded. TRANSINT:[id number] Voice Confirmation ID: [id number] DOCUMENT ID: [id number] AUGUSTINE MICHEL MD at 0848 CC: [id number] DICTATION DATE: 03/25/20 1543 MANAGER ACTION: 03/25/202024 ADM IN [place] [id number] [place] [address]
[2020-03-26 10:02] VITALS: BP 108/68
--- NOTE | 2020-03-26 12:33 | NUR ---
ORIENTED TO SELF WITH CONFUSION.IS COMPLIANT WITH STAFF AND MEDS.VISITS WITH PEERS.AMBULATES.NO AGGRESSION OR HALLUCINATIONS OBSERVED.WILL CONTINUE WITH CURRENT PLAN OF CARE,MONITOR FOR SAFETY AND CHANGES.
[2020-03-26 20:03] VITALS: BP 143/64
--- NOTE | 2020-03-27 02:34 | NUR ---
B) Patient is alert and oriented to person, very pleasant, calm and cooperative, also very confused and wanders at times, I) Administered scheduled medications as ordered, redirected as needed, R) Medication compliant, up several times at night to wander P) Continue plan of care.
[2020-03-27 07:46] VITALS: BP 119/71
--- NOTE | 2020-03-27 09:09 | PN ---
PATIENT:SLADE SOLORIO MEDICAL RECORD: [id number] LOCATION:[facility] ADMISSION DATE: 03/20/20 PROGRESS NOTE DATE OF SERVICE: 03/26/2020 SUBJECTIVE: The patient's case was discussed with staff. She has no new complaint. OBJECTIVE: The patient is in good behavioral control. She has limited insight about her situation. She is sleeping and eating much better. ASSESSMENT: Dementia. PLAN: The patient will be treated with current medicines. Her long-term prognosis is guarded. There have been no further hallucinations. TRANSINT:[id number] Voice Confirmation ID: [id number] DOCUMENT ID: [id number] AUGUSTINE MICHEL MD at 0909 CC: [id number] DICTATION DATE: 03/26/20 1507 BUSINESS SUPERVISOR: 03/26/202054 ADM IN [place] [id number] [place] [address]
--- NOTE | 2020-03-27 09:34 | NUR ---
pt paces in dayarea stating "i don't know what im suppose to do." pt is confused and disoriented. pt is easy to redirect. pt is calm and cooperative. no aggressive behavior noted. pt FSBS: 86 mg/dl. pt is compliant with meds, vitals and assessments. pt has incontient episodes. reorient as needed. pt ambulates and can make some needs known. will cont plan of care.
[2020-03-27 20:33] VITALS: BP 132/57
--- NOTE | 2020-03-27 21:00 | NUR ---
B.) PT IS ALERT AND ORIENTED TO SELF ONLY. SHE HAS POOR INSIGHT INTO HER SITUATION. SHE IS RECEIVED IN THE DAYROOM SOCIALIZING WITH PEERS. SHE IS CALM AND COOPERATIVE WITH STAFF. SHE IS ABLE TO AMBULATE WITHOUT ASSIST AND IS ABLE TO VOICE NEEDS AND WANTS. I.) PROVIDED PM MEDICATIONS PRESCRIBED. REDIRECT NEEDED. R.) COMPLIANT WITH ALL MEDICATIONS. EASY TO REDIRECT. P.) WILL CONTINUE TO MONITOR.
--- NOTE | 2020-03-27 23:28 | NUR ---
PT IS IN BED HAVING AUDITORY HALLUCINATIONS. SHE IS CURSING AT PEOPLE NOT PRESENT. REDIRECTED. ADMINISTERED PRN HALDOL 5MG AND ATIVAN 0.5 IM. WILL CONTINUE TO MONITOR.
--- NOTE | 2020-03-28 00:10 | NUR ---
PT RESTING CALMLY IN BED WITH EYES CLOSED. NO SIGNS OF DISTRESS NOTED. WILL CONTINUE TO MONITOR.
[2020-03-28 08:12] VITALS: BP 137/64
--- NOTE | 2020-03-28 14:17 | NUR ---
Patient alert/calm/cooperativetoday,she is very quiet and reservered but will respond in a soft, quiet speech tone. Patient is oriented to person only. resident with unsteady gait today and required more assistance today. she appeared very sad and often distent with staff today. staff focused and engaged with one to one contact today with patient and provided opportunities for resident to talk and express any feelings.Patient remained quiet for the remainder of the shift. Staff will continue to provide one to one activity to patient feedback.
--- NOTE | 2020-03-28 21:32 | NUR ---
B) Patient is alert and oriented to self, very confused, quiet and unsteady when ambulating, I) Administered scheduled medications as ordered , assisted with needs, assisted with ambulation. R) Mediation compliant, quiet and flat affect, P) Continue plan of care.
[2020-03-28 21:45] VITALS: BP 140/48
[2020-03-29 08:11] VITALS: BP 133/63
--- NOTE | 2020-03-29 10:42 | NUR ---
The patient is in a pleasant mood and she is calm, she is smiling, she enjoys staying busy. At the time she is with the nursing students putting the myfab5 puzzle together, she is using her chainstitch seat joiner memory recall and doing well. She has poor short term memory recall, and poor insight into her situation. Provide prescribed meds. The patient is compliant with meds. She has not shown any aggression today. Monitor her mood and behavior. She ambulates, and feeds herself. She needs some assist to toilet as sometimes she loses her balance. Continue POC.
--- NOTE | 2020-03-29 20:33 | NUR ---
RECEIVED IN DAYROOM. SITTING IN A CHAIR WITH PEERS AT HIS SIDE. CALM AND COOPERATIVE WITH CARE AND ASSESSMENT. NO SIGNS OF AGGRESSION OR HALLUCINATIONS. REDIRECT AND REORIENT NEEDED. SITTING IN DAYROOM AT THIS TIME. CONTINUE PLAN OF CARE.
[2020-03-29 20:41] VITALS: BP 153/52
[2020-03-30 09:00] VITALS: BP 124/60
--- NOTE | 2020-03-30 14:00 | NUR ---
SITTING UP IN RECLINER IN DAY ROOM.HAS BEEN PARTICIPATING IN ACTIVITIES.IS ORIENTED TO SELF BUT VERY CONFUSED.WHILE HOLDING A BLANKET IN HER LAP REPORTED SHE WAS FREEZING.THIS NURSE ENCOURAGED HER TO WRAP UP IN HER BLANKET BUT SHE DID NOT SEEM TO UNDERSTAND AND THIS NURSE HAD TO DO IT FOR HER.IS AMBULATORY.COMPLIANT WITH STAFF AND MEDS.WILL CONTINUE WITH CURRENT PLAN OF CARE,MONITOR FOR CHANGES AND SAFETY.
[2020-03-30 20:06] VITALS: BP 136/59
[2020-03-31 09:00] VITALS: BP 122/63
--- NOTE | 2020-03-31 09:10 | PN ---
PATIENT:SLADE SOLORIO MEDICAL RECORD: [id number] LOCATION:[facility] ADMISSION DATE: 03/20/20 PROGRESS NOTE DATE OF SERVICE: 03/30/2020 SUBJECTIVE: The patient's case was discussed with staff. She has no new complaint. OBJECTIVE: The patient is in good behavioral control with limited insight about her situation. She has not been disruptive to any appreciable degree, but unfortunately she is severely impaired cognitively and is going to require 75-unjh-f-day supervision. TRANSINT:[id number] Voice Confirmation ID: [id number] DOCUMENT ID: [id number] AUGUSTINE MICHEL MD at 0910 CC: [id number] DICTATION DATE: 03/30/20 1644 ELEMENTARY SCHOOL TEACHER: 03/31/20 0229 ADM IN [id number] [place] [address]
--- NOTE | 2020-03-31 18:06 | NUR ---
PT SITTING IN DAYROOM SOCIALIZING WITH PEERS. ASSESSMENT COMPLETE. PRESCRIBED MEDS PROVIDED ORDERED. MED COMPLINAT. REDIRECT AND REORIENT NEEDED. NO BEHAVIORS NOTED. WILL CPOC.
[2020-03-31 20:27] VITALS: BP 143/55
--- NOTE | 2020-03-31 20:39 | NUR ---
RECEIVED IN DAYROOM. SITTING IN A CHAIR SOCIALIZING WITH PEERS. CALM AND COOPERATIVE WITH CARE AND ASSESSMENT. NO SIGNS OF HALLUCINATIONS. NO SIGNS OF AGGRESSION. REDIRECT AND REORIENT NEEDED. CONTINUES TO SOCIALIZE WITH PEERS. CONTINUE PLAN OF CARE.
--- NOTE | 2020-04-01 05:52 | NUR ---
WOKE UP IN A FOUL MOOD THIS MORNING. CURSING TO HERSELF WHILE PACING THE HALLS. SAYING SHE GOING TO KILL SOMEONE. VERY CONFUSED.
[2020-04-01 07:30] VITALS: BP 126/68
--- NOTE | 2020-04-01 09:58 | NUR ---
Nutrition Follow-up: Diet: Diabetic PO intake: ~96% average x last 9 meals Last BM: 03/31/20- per MD notes. Wt: 124# (03/29/20); Admit Wt: 121# (03/20/20) Meds noted: senokot, SSI, glipizide, vit D. Labs noted: POC Glu 119(H) Recommend continue current diet. RD following.
--- NOTE | 2020-04-01 11:20 | PN ---
PATIENT:SLADE SOLORIO MEDICAL RECORD: [id number] LOCATION:[facility] ADMISSION DATE: 03/20/20 PROGRESS NOTE DATE OF SERVICE: 03/31/2020 SUBJECTIVE: The patient's case was discussed with staff. She has no new complaint. OBJECTIVE: The patient denies intent to harm herself or others. She is tolerating her medicines well. She has not been disruptive to any appreciable degree today. ASSESSMENT: Dementia. PLAN: Current medicines have been reviewed and will be maintained. I anticipate she can be transitioned out of the hospital soon if this level of improvement continues. NTS:[id number] Voice Confirmation ID: [id number] DOCUMENT ID: [id number] AUGUSTINE MICHEL MD at 1120 CC: [id number] DICTATION DATE: 03/31/20 1617 GIS ANALYST: 04/01/20 0033 ADM IN [facility] [address] [id number]
--- NOTE | 2020-04-01 14:21 | NUR ---
PT BECOME AGGRESSIVE WITH STAFF. PT YELLING, CUSSING AND ATTEMPTING TO HIT AT STAFF AT THIS TIME. UNABLE TO REDIRECT AT THIS TIME. ATIVAN 0.5MG IM AND HALDOL 2MG IM GIVEN PER PRN ORDER AT THIS TIME. PT SEPERATED FROM PEERS WITH STAFF FOR SAFETY.
--- NOTE | 2020-04-01 21:30 | NUR ---
B.) PT IS ALERT AND ORIENTED TO SELF ONLY. SHE HAS POOR INSIGHT INTO HER SITUATION. SHE RELATES THAT SHE IS SLEEPY TODAY. SHE IS CALM AND COOPERATIVE WITH STAFF. I.) PROVIDED PM MEDICATIONS PRESCRIBED. REDIRECT NEEDED. R.) COMPLIANT WITH ALL MEDICATIONS. EASY TO REDIRECT. P.) WILL CONTINUE TO MONITOR.
[2020-04-01 22:38] VITALS: BP 153/54
[2020-04-02 07:40] VITALS: BP 134/67
--- NOTE | 2020-04-02 10:13 | NUR ---
The patient is awake and she is pleasant she is interacting with her peers, although, they are not conversing about the same subjects, but they are all pleasant. She has not shown aggression today, she has poor insight into her situation and she has poor short term memory recall. She ambulates, toilets, and feeds herself. Provide prescribed meds. The patient is compliant with meds and unit milieu. Continue POC.
--- NOTE | 2020-04-02 11:18 | PN ---
PATIENT:SLADE SOLORIO MEDICAL RECORD: [id number] LOCATION:[facility] ADMISSION DATE: 03/20/20 PROGRESS NOTE DATE OF SERVICE: 04/01/2020 SUBJECTIVE: The patient's case was discussed with staff. She has no new complaint. OBJECTIVE: The patient is in good behavioral control and has no thoughts of harming anyone. ASSESSMENT: Dementia. PLAN: The patient is severely impaired cognitively and hopefully can be transitioned home soon. She is in need of 86-rznc-u-day supervision. TRANSINT:[id number] Voice Confirmation ID: [id number] DOCUMENT ID: [id number] AUGUSTINE MICHEL MD at 1118 CC: [id number] DICTATION DATE: 04/01/20 1248 FERMENTER: 04/01/20 1616 ADM IN [facility] [address] [place] [address]
--- NOTE | 2020-04-02 19:54 | NUR ---
B.) PT IS ALERT AND ORIENTED TO SELF ONLY. SHE HAS POOR INSIGHT INTO HER SITUATION. SHE IS SELF ISOLATING AND WITHDRAWN TONITE. SHE DOES COOPERATE WITH STAFF. I.) PROVIDED PM MEDICATIONS PRESCRIBED. REDIRECT NEEDED. R.) COMPLIANT WITH ALL MEDICATIONS. EASY TO REDIRECT. P.) WILL CONTINUE TO MONITOR.
[2020-04-02 21:07] VITALS: BP 139/56
[2020-04-03 08:00] VITALS: BP 150/49
--- NOTE | 2020-04-03 08:04 | NUR ---
The patient is confused, she knows her name, but not the place, time, or date. She is walking around with another patient. She is hungry and keeps asking about breakfast. She has poor insight into his situation. She has poor short term memory recall. She ambulates, toilets, and feeds herself. Provide prescribed meds. The patient is compliant with meds. Continue POC.
[2020-04-03 20:36] VITALS: BP 168/72
--- NOTE | 2020-04-03 21:00 | NUR ---
RECEIVED IN DAYROOM WATCHING TV WITH PEERS. CALM AND COOPERATIVE WITH STAFF, GETTING AGITATED ABOUT WANTING TO GO TO BED. NO HALLUCINATIONS NOTED. ADMINISTERED PRESCRIBED MEDICATIONS. COMPLIANT WITH TAKING MEDS. REDIRECT NEEDED. CONTINUE POC.
[2020-04-04 09:56] VITALS: BP 131/56
--- NOTE | 2020-04-04 10:58 | NUR ---
PT SITTING AND SOCIALIZING WITH OTHER PEERS AT THIS TIME. PT IS CONFUSED AND DISORIENTED. REDIRECT AND REORIENT NEEDED. PT DOES WANDER AT TIMES. PT IS EASY TO REDIRECT. NO AGGRESSION NOTED. PT IS COMPLIANT WITH MEDS, VITALS AND ASSESSMENTS. PT CAN MAKE NEEDS KNOWN. AMBULATES. WILL CONT PLAN OF CARE.
--- NOTE | 2020-04-04 12:36 | PN ---
PATIENT:SLADE SOLORIO MEDICAL RECORD: [id number] LOCATION:[facility] ADMISSION DATE: 03/20/20 PROGRESS NOTE DATE OF SERVICE: 04/02/2020 SUBJECTIVE: The patient's case was discussed with staff. She has no new complaint. OBJECTIVE: The patient is oriented to person only. She has had no hallucinations today. Yesterday, she did require p.r.n. medication for agitation, but I think that she was caught up in the overall environment and this was not related to her underlying condition. Yesterday, there were two men who were angry, disruptive and I think that this escalated her. She is calmer today. I am not going to make any major medication changes today. If she continues to show improvement, I will look at discharge next week. TRANSINT:[id number] Voice Confirmation ID: [id number] DOCUMENT ID: [id number] AUGUSTINE MICHEL MD at 1236 CC: [id number] DICTATION DATE: 04/02/20 1142 MAINFRAME SYSTEMS PROGRAMMER: 04/02/20 1221 ADM IN [facility] [address] [place] [address]
[2020-04-04 21:41] VITALS: BP 138/65
--- NOTE | 2020-04-05 01:41 | NUR ---
B) RECEIVED IN DAYROOM WATCHING TV WITH PEERS. SMILING AND FRIENDLY WITH STAFF THIS EVENING. NO AGGRESSION OR HALLUCINATIONS NOTED. I) ADMINISTERED SCHEDULED MEDICATIONS. REDIRECT NEEDED. R) COMPLIANT WITH MEDICATIONS. EASY TO REDIRECT. P) WILL CONTINUE PLAN OD CARE.
[2020-04-05 08:47] VITALS: BP 140/65
--- NOTE | 2020-04-05 14:36 | NUR ---
RECEIVED IN HALLWAY OUTSIDE OF NURSES STATION. SOCIALIZING WITH OTHER PATIENTS. CALM AND COOPERATIVE WITH CARE AND ASSESSMENT. NO AGGRESSIVE BEHAVIOR TODAY. REDIRECT AND REORIENT NEEDED. PARTICIPATING IN GROUP AT THIS TIME. CONTINUE PLAN OF CARE.
[2020-04-05 20:16] VITALS: BP 151/50
--- NOTE | 2020-04-05 20:18 | NUR ---
RECEIVED IN DAYROOM. SITTING IN A CHAIR WITH PEERS AT HER SIDE. CALM AND COOPERATIVE WITH CARE AND ASSESSMENT. NO SIGNS OF HALLUCINATIONS OR AGGRESSION. REDIRECT AND REORIENT NEEDED. CONTINUES TO SIT CALMLY IN DAYROOM. CONTINUE PLAN OF CARE.
--- NOTE | 2020-04-06 08:16 | NUR ---
REC'D PT IN HALLWAY BY NURSES STATION. AWAKE AND ALERT TO PERSON ONLY. CALM AND COOPERATIVE WITH ASSESSMENT. PRESCRIBED MEDS PROVIDED ORDERED. MED COMPLIANT. NO AGGRESSION NOTED AT THIS TIME. REDIRECT AND REORIENT NEEDED. WILL CPOC.
[2020-04-06 08:45] VITALS: BP 120/52
[2020-04-06 20:03] VITALS: BP 127/55
--- NOTE | 2020-04-06 21:58 | NUR ---
EASILY AGITATED. CURING ABOUT THE SARAI ALARM SOUNDING. CURSING AND SAYING SHE IS GOING TO KILL SOMEOME WHEN GIVEN HER NIGHT GOWN AT BED TIME. SHE IS UNABLE TO STATE WHAT SHE IS UPSET ABOUT. VERY CONFUSED. CONTINUES TO TALK TO HERSELF IN BED. AGITATED ABOUT SOMETHING.
[2020-04-07 08:44] VITALS: BP 116/53
--- NOTE | 2020-04-07 12:00 | NUR ---
RECEIVED IN HALLWAY OUTSIDE OF NURSES STATION. SOCIALIZING. CALM AND COOPERATIVE WITH CARE AND ASSESSMENT. BECOMES EASILY AGITATED. REDIRECT AND REORIENT NEEDED. EATING AT THIS TIME. CONTINUE PLAN OF CARE.
--- NOTE | 2020-04-07 14:39 | PN ---
PATIENT:SLADE SOLORIO MEDICAL RECORD: [id number] LOCATION:[facility] ADMISSION DATE: 03/20/20 PROGRESS NOTE DATE OF SERVICE: 04/06/2020 SUBJECTIVE: The patient's case was discussed with staff. She has no new complaint. OBJECTIVE: The patient is in good behavioral control with limited insight about her condition. She is severely impaired cognitively. ASSESSMENT: Dementia. PLAN: Current medicines have been reviewed and will be maintained. Her long-term prognosis is guarded. TRANSINT:[id number] Voice Confirmation ID: [id number] DOCUMENT ID: [id number] AUGUSTINE MICHEL MD at 1439 CC: [id number] DICTATION DATE: 04/06/20 1655 BRUSHING OPERATOR: 04/07/20 0230 ADM IN [address] [address]
--- NOTE | 2020-04-07 20:00 | NUR ---
RECEIVED IN DAYROOM. SITTING IN A CHAIR WITH PEERS AT HER SIDE. CALM AND COOPERATIVE WITH CARE AND ASSESSMENT. HELPFUL WITH PEERS. NO SIGNS OF AGGRESSION OR HALLUCINATIONS. REDIRECT AND REORIENT NEEDED. CONTINUES TO BE CALM IN DAYROOM. CONTINUE PLAN OF CARE.
[2020-04-07 20:10] VITALS: BP 117/39
[2020-04-08 08:34] VITALS: BP 126/72
--- NOTE | 2020-04-08 08:38 | PN ---
PATIENT:SLADE SOLORIO MEDICAL RECORD: [id number] LOCATION:[facility] ADMISSION DATE: 03/20/20 PROGRESS NOTE DATE OF SERVICE: 04/07/2020 SUBJECTIVE: The patient's case was discussed with staff. She has no new complaint. OBJECTIVE: The patient is partially oriented and her behavior is good. She has not been disruptive to any appreciable degree. ASSESSMENT: Dementia. PLAN: The patient is tolerating her current medicines and eating reasonably well. If this level of improvement continues, I anticipate she can be discharged soon. TRANSINT:[id number] Voice Confirmation ID: [id number] DOCUMENT ID: [id number] AUGUSTINE MICHEL MD at 0838 CC: [id number] DICTATION DATE: 04/07/20 1608 HAND PAINT MIXER: 04/08/20 0030 ADM IN [facility] [address] [place] [address]
--- NOTE | 2020-04-08 14:23 | NUR ---
Nutrition Follow-up: Diet: Diabetic PO intake: ~63% average x last 9 meals Last BM: 04/06/20. Wt: 119.8# (04/05/20); Admit Wt: 121# (03/20/20) Meds noted: JYOTHI gunderson, vit D. POC Glu 93(WNL) Recommend continue current diet. RD following.
--- NOTE | 2020-04-08 15:23 | NUR ---
ALERT, CALM, CONFUSED, ORIENTED TO SELF. MEDICATION COMPLIANT, COOPERATIVE WITH STAFF, NO AGGRESSION NOTED. CONTINUE PLAN OF CARE. DISCHARGE PLANNED FOR TOMORROW.
[2020-04-08] MEDS ORDERED: DONEPEZIL HCL10 MG PO (15:51)
[2020-04-08] MEDS ORDERED: ZOLOFT50 MG PO (15:51)
[2020-04-08] MEDS ORDERED: FEXOFENADINE H180 MG PO (15:51)
[2020-04-08] MEDS ORDERED: LISINOPRIL10 MG PO (15:51)
[2020-04-08] MEDS ORDERED: MUCINEX600 MG PO (15:52)
[2020-04-08] MEDS ORDERED: FLUTICASONE PRO16 GM NASAL (15:52)
[2020-04-08] MEDS ORDERED: SINGULAIR10 MG PO (15:52)
[2020-04-08] MEDS ORDERED: Senokot TAB PO (15:52)
[2020-04-08] MEDS ORDERED: Vitamin D PO (15:53)
[2020-04-08 20:08] VITALS: BP 108/59
--- NOTE | 2020-04-08 20:57 | NUR ---
PT SITTING UP IN CHAIR IN DAY ROOM, ADM 2100 MEDS PER MD ORDERS, SEE HUNGR, PT SIMONA WELL
--- NOTE | 2020-04-08 21:00 | NUR ---
RECEIVED IN DAYROOM SITTING IN RECLINER, SOCIALIZING WITH PEERS. MEDICATION COMPLIANT. NO AGGRESSION NOTED. REORIENTED AND REDIRECTED NEEDED. CONTINUE TO MONITOR AND CPOC.
--- NOTE | 2020-04-09 06:23 | NUR ---
PT OUT IN DOS SANTOS, REDIRECTED TO ROOM, PT COULDN'T FIND HER BR, PT TO BR, VOIDED WITH NO DIFFICULTY, OBTAINED FSBS, PT BACK TO BED, FALL PRECAUTIONS IN PLACE
--- NOTE | 2020-04-09 08:30 | PN ---
PATIENT:SLADE SOLORIO MEDICAL RECORD: [id number] LOCATION:[facility] ADMISSION DATE: 03/20/20 PROGRESS NOTE DATE OF SERVICE: 04/08/2020 SUBJECTIVE: The patient's case was discussed with staff. She has no new complaint. OBJECTIVE: The patient is in good behavioral control. She has not been aggressive. She is oriented to person only. ASSESSMENT: Dementia. PLAN: Current medicines have been reviewed and will be maintained. The patient has been accepted by the [facility] and I anticipate she can be reasonably transitioned there tomorrow assuming no new problems develop. TRANSINT:[id number] Voice Confirmation ID: [id number] DOCUMENT ID: [id number] AUGUSTINE MICHEL MD at 0830 CC: [id number] DICTATION DATE: 04/08/20 1549 STAFF CYTOTECHNOLOGIST: 04/08/20 2249 ADM IN [facility] [address] [place] [address]
[2020-04-09 09:43] VITALS: BP 142/62
--- NOTE | 2020-04-09 11:34 | NUR ---
PT SOCIALIZING WITH OTHER PEERS. PT IS CALM AND COOPERATIVE WITH STAFF. PT CAN MAKE NEEDS KNOWN. PT IS COMPLIANT WITH MEDS, VITALS AND ASSESSMENTS. AMBUALATES. REDIRECT AND REORIENT NEEDED. NO BEHAVIORS NOTED. WILL CONT PLAN OF CARE.
[2020-04-09 20:27] VITALS: BP 127/41
--- NOTE | 2020-04-10 02:37 | NUR ---
B) Patient is alert and oriented to self, very confused, able to make some needs known I) Administered scheduled medications as ordered, monitored for safety R) Medication compliant, hallucinating at times, sundowns P) Continue plan of care.
--- NOTE | 2020-04-10 09:02 | PN ---
PATIENT:SLADE SOLORIO MEDICAL RECORD: [id number] LOCATION:[facility] ADMISSION DATE: 03/20/20 PROGRESS NOTE DATE OF SERVICE: 04/09/2020 SUBJECTIVE: The patient's case was discussed with staff. She has no new complaint. OBJECTIVE: The patient is in good behavioral control and has no thoughts of harming herself or others. ASSESSMENT: Dementia. PLAN: Current medicines have been reviewed and will be maintained. Long-term prognosis is guarded. TRANSINT:[id number] Voice Confirmation ID: [id number] DOCUMENT ID: [id number] AUGUSTINE MICHEL MD at 0902 CC: [id number] DICTATION DATE: 04/09/20 1623 RESTAURANT DELIVERY DRIVER: 04/09/20 2101 ADM IN [id number] [place] [address]
[2020-04-10 09:23] VITALS: BP 112/54
--- NOTE | 2020-04-10 09:27 | NUR ---
FAMILY CALLED AND WANTED TO KNOW IF THE PT DISCHARGED DUE TO HER CALLING [facility] AND THEY DID NOT HAVE RECORD OF HER AT ALL. NURSE STATED SHE DID NOT D/C AND WE WOULD CALL WHEN THE PT DISCHARGES. SHE VERBALIZIED UNDERSTANDING.
--- NOTE | 2020-04-10 10:16 | NUR ---
The patient is awake and alert, she is a little OMAHA. She has poor short term memory recall, and poor insight into her situation. She is pleasant and cooperative this am in groups and interacting with staff. She ambulates, toilets, and feeds herself. She at times is heard cursing, but she is not cursing at staff or peers. Provide prescribed meds. The patient is compliant with meds. Continue POC.
--- NOTE | 2020-04-10 15:39 | NUR ---
[facility] here to pick the patient up. Assisted the patient to the van in a w/c. Her belongings and paperwork sent with the national flatbed truck driver to [facility]. The patient is now d/c'd from [facility].
--- NOTE | 2020-04-10 16:00 | NUR ---
Spoke to Shraddha at [facility] and gave report on this patient. Let her know the patient is on her way.
--- NOTE | 2020-04-13 15:54 | DS ---
PATIENT:SLADE SOLORIO :40 MEDICAL RECORD: [id number] DISCHARGE SUMMARY ADMISSION DATE: 03/20/20 DISCHARGE DATE: 04/10/20 DATE OF ADMISSION: 03/20/2020 IDENTIFYING DATA: Ms. Zambrano is a 79-year-old female patient that was admitted to the hospital on a voluntary basis from the emergency room. CHIEF COMPLAINT: Confusion, increased aggression due to extreme aggressive behavior toward her daughter. HISTORY OF PRESENT ILLNESS: The patient was brought by ambulance to the hospital from her home which she resides with her daughter. Daughter stated that the patient became very aggressive and started saying that she was going to kill people. The patient was sitting in the chair. The patient was calm but disorganized and difficult to redirect. The patient states that she believes that she is in assisted and does not understand why. HOSPITAL COURSE: The patient was admitted to the hospital and fully evaluated from a medical, psychological, and social standpoint. She was found to have underlying dementia. Medications were adjusted. The patient responded, was calm, was able to be redirected, pleasant. The patient's care was discussed with family and it was decided that the patient would move into [facility]. The patient responded well to medications and structure. With COVID, this complicated the discharge plan, although the patient was negative for COVID. DISCHARGE DIAGNOSES: AXIS I: Major neurocognitive disorder. AXIS II: None. AXIS III: Diabetes. AXIS IV: Moderate. AXIS V: Global assessment of functioning is 40. PLAN: At the time of discharge, the patient was in good behavioral control and did not represent an acute risk to herself or others. The patient was accepted at [facility] supported by her daughter. NTS:[id number] Voice Confirmation ID: [id number] DOCUMENT ID: [id number] Dictated By: LAUREN CONNOLLY I have interviewed/examined the above patient and agree with these documented findings. AUGUSTINE MICHEL MD at 1554 CC: [id number] DICTATION DATE: 04/11/20 1112 PUTTY REMOVER: 04/11/202058 DIS IN 04/10/[id number] [place] [address]
== END 2020-04-10 16:08 | DRG 57 ==
LOC: D.ER 12:55 → D.PSYCH 16:24
PROVIDERS: ADMIT Psychiatry & Neurology Psychiatry; ATTEND Psychiatry & Neurology Psychiatry
DX: G30.1 Alzheimer's disease with late onset (principal); F02.81 Dementia in other diseases classified elsewhere, unspecified severity, with behavioral disturbance; N17.9 Acute kidney failure, unspecified; I10 Essential (primary) hypertension; E11.9 Type 2 diabetes mellitus without complications; F32.9 Major depressive disorder, single episode, unspecified; E55.9 Vitamin D deficiency, unspecified; D50.9 Iron deficiency anemia, unspecified; J30.9 Allergic rhinitis, unspecified; K59.00 Constipation, unspecified